=== PATIENT | female | born 1980 | race African-American/Black ===

== ENCOUNTER 2016-10-13 22:40 | Emergency (ER) | payer MEDICAID ==
[~2016-10-13] VITALS: Ht 172.7 cm; Wt 73.0 kg
[2016-10-13 22:42] VITALS: BP 112/68
== END 2016-10-13 23:48 | disposition left against medical advice (07) ==
LOC: ER 23:11
DX: Z53.21 Procedure and treatment not carried out due to patient leaving prior to being seen by health care provider (principal)